=== PATIENT | female | born 1975 | race Caucasian/White ===

== ENCOUNTER 2020-04-22 11:37 | Emergency (ER) | payer OTHER ==
[2020-04-22 11:48] VITALS: TEMP 97.8
[2020-04-22] MEDS ORDERED: CEPHALEXIN 500MG STARTER PACK 4 CAP BTL PO STA (12:03)
[2020-04-22] MEDS ORDERED: SULFAMETH-TMP DS STARTER PACK 2 TAB BTL PO STA (12:03)
--- NOTE | 2020-04-22 12:05 | ED ---
Skin/Abscess/FB HPI - General Source: patient Mode of arrival: ambulatory Limitations: no limitations <Cherelle Stallings - Last Filed: 04/22/20 12:23> <Brunilda Milligan - Last Filed: 04/22/20 13:05> - General Chief complaint: Skin/Abscess/Foreign Body Stated complaint: Sore on face Time Seen by Provider: 04/22/20 11:50 - History of Present Illness Initial comments: 44-year-old female presenting today for chief complaint of left sided facial abscess. Patient states that she had a large dinner ingrown hair on the left side of her face. She states that today it popped expressing a ton of purulent drainage. Patient thought it might be an abscess. She states there is some surrounding redness that she was not sure if she needed antibiotics that she presented to the ER. Patient denies any fever, chills general malaise nausea vomiting headache chest pain shortness of breath. Patient denies any oral lesions, difficulty breathing or swallowing. pt appears wellnontoxic on arrival. (Cherelle Stallings) - Related Data Previous Rx's Medication Instructions Recorded Cephalexin [Keflex] 500 mg PO Q6HR 7 Days #28 cap 04/22/20 Sulfamethox-Tmp 800-160Mg [Bactrim 2 tab PO Q12HR 7 Days #28 tab 04/22/20 DS 800-160 mg] Allergies Allergy/AdvReac Type Severity Reaction Status Date / Time No Known Allergies Allergy Verified 04/22/20 11:46 Review of Systems ROS Other: All systems not noted in ROS Statement are negative. <Cherelle Stallings - Last Filed: 04/22/20 12:23> ROS Other: All systems not noted in ROS Statement are negative. <Brunilda Milligan - Last Filed: 04/22/20 13:05> ROS Statement: Those systems with pertinent positive or pertinent negative responses have been documented in the HPI. Past Medical History Past Medical History: Hypertension, Thyroid Disorder Additional Past Medical History / Comment(s): hole in heart History of Any Multi-Drug Resistant Organisms: None Reported Additional Past Surgical History / Comment(s): Spleenectomy Past Psychological History: No Psychological Hx Reported Smoking Status: Current every day smoker Past Alcohol Use History: None Reported Past Drug Use History: None Reported <Cherelle Stallings - Last Filed: 04/22/20 12:23> General Exam Limitations: no limitations <Cherelle Stallings - Last Filed: 04/22/20 12:23> - General Exam Comments Initial Comments: General: The patient is awake and alert, in no distress Eye: +3 mm pupils are equal, round and reactive to light, extra-ocular movements are intact. No nystagmus. There is normal conjunctiva bilaterally. No signs of icterus. Ears, nose, mouth and throat: There are moist mucous membranes and no oral lesions. Neck: The neck is supple, there is no tenderness or JVD. Cardiovascular: There is a regular rate and rhythm. No murmur, rub or gallop is appreciated. Respiratory: Lungs are clear to auscultation, respirations are non-labored, breath sounds are equal. No wheezes, stridor, rales, or rhonchi. Gastrointestinal: Soft, non-distended, non-tender abdomen without masses or organomegaly noted. There is no rebound or guarding present. Musculoskeletal: Normal ROM, no tenderness. Strength 5/5. Sensation intact. Radial pulses equal bilaterally 2+. Neurological: A&O x 3. CN II-XII intact grossly, There are no obvious motor or sensory deficits. Coordination appears grossly intact. Speech is normal. Skin: Skin is warm and dry and no rashes 2x1cm lesions raised with open center, cannot express purulent drainage no fluctuation appreciated with surrounding redness left lower jawline Psychiatric: Cooperative, appropriate mood & affect, normal judgment. (Cherelle Stallings) Course Vital Signs 04/22/20 04/22/20 11:42 12:18 Temperature 97.8 F Pulse Rate 67 87 Respiratory 18 20 Rate Blood Pressure 184/106 165/97 O2 Sat by Pulse 100 99 Oximetry Medical Decision Making <Cherelle Stallings - Last Filed: 04/22/20 12:23> <Brunilda Milligan - Last Filed: 04/22/20 13:05> - Medical Decision Making Pt abscess drained spontaneously. there is surrounding redness and warmth. denies systemic spread of infection. no fevers. pt will be discharged on dual antibiotics therapy regime. Dr >Srini agreeable to care plan. (Cherelle Stallings) I was available for consultation in the emergency department. The history and physical exam were done by the midlevel provider. I was consulted for this patients care. I reviewed the case with the midlevel provider and based on their presentation of the patient, I agree with the assessment, medical decision making and plan of care as documented. Chart was dictated using [employer]ation[employer] dictation software. Attempts were made to correct any dictation errors however some typographical errors may persist. (Brunilda Milligan) Disposition Is patient prescribed a controlled substance at d/c from ED?: No Time of Disposition: 12:05 <Cherelle Stallings - Last Filed: 04/22/20 12:23> <Brunilda Milligan - Last Filed: 04/22/20 13:05> Clinical Impression: Facial cellulitis, Elevated blood pressure reading Disposition: HOME SELF-CARE Condition: Good Instructions (If sedation given, give patient instructions): Abscess (ED) Additional Instructions: Please use medication as discussed. Please follow-up with family doctor in the next 2 days. Please return to emergency room if the symptoms increase or worsen or for any other concerns. Prescriptions: Sulfamethox-Tmp 800-160Mg [Bactrim DS 800-160 mg] 2 tab PO Q12HR 7 Days #28 tab Cephalexin [Keflex] 500 mg PO Q6HR 7 Days #28 cap Referrals: None,Stated [Primary Care Provider] - 1-2 days [facility] Elisa lewis [NON-STAFF] - 1-2 days Dari Oropeza MD [STAFF PHYSICIAN] - 1-2 days
[2020-04-22 12:19] VITALS: BP 165/97; PULSE 87; RESP 20
== END 2020-04-22 12:19 | disposition home or self-care (01) ==
LOC: EC 11:37
DX: L03.211 Cellulitis of face (principal); L02.01 Cutaneous abscess of face; R03.0 Elevated blood-pressure reading, without diagnosis of hypertension; F17.200 Nicotine dependence, unspecified, uncomplicated
CPT/HCPCS: 99283

== ENCOUNTER 2022-01-18 23:01 | Emergency (ER) | payer OTHER ==
[2022-01-18 23:10] VITALS: TEMP 98.2
[2022-01-19] MEDS ORDERED: IPRATROPIUM-ALBUTEROL 3 ML NEB INHALATION STA (00:28)
[2022-01-19] MEDS ORDERED: methylPREDNISolone SOD SUCCI 125 MG/2 ML VIAL IV STA (00:28)
--- NOTE | 2022-01-19 00:43 | XR ---
EXAMINATION TYPE: XR chest 2V DATE OF EXAM: 01/19/2022 COMPARISON: NONE HISTORY: Difficulty breathing TECHNIQUE: 2 views FINDINGS: Heart and mediastinum are normal. Lungs are clear of consolidation. There are no hilar mass es. The bony thorax is intact. IMPRESSION: No active cardiopulmonary disease. Normal heart.
[2022-01-19 01:03] VITALS: RESP 18
[2022-01-19 01:10] LABS: Basophils # (A) 0.1 k/uL (0-0.2); Basophils % (A) 1 %; Eosinophils # (A) 0.4 k/uL (0-0.7); Eosinophils % (A) 4 %; Lymphocytes # (A) 2.8 k/uL (1.0-4.8); Lymphocytes % (A) 31 %; MCH 30.3 pg (25.0-35.0); MCHC 33.2 g/dL (31.0-37.0); MCV 91.4 fL (80.0-100.0); Mean Platelet Volume 9.2; Monocytes # (A) 0.9 k/uL (0-1.0); Monocytes % (A) 10 %; Neutrophils # (A) 4.5 k/uL (1.3-7.7); Neutrophils % (A) 51 %; Platelet Count 427 k/uL (150-450); RBC 4.27 m/uL (3.80-5.40); RDW 13.6 % (11.5-15.5); WBC 8.8 k/uL (3.8-10.6)
--- NOTE | 2022-01-19 01:27 | US ---
EXAMINATION TYPE: US venous doppler duplex LE DATE OF EXAM: 01/19/2022 12:29 AM COMPARISON: NONE CLINICAL HISTORY: edema. Edema in bilateral feet. Not on blood thinners. No hx DVT. SIDE PERFORMED: Bilateral TECHNIQUE: The lower extremity deep venous system is examined utilizing real time linear array sonog chris with graded compression, doppler sonography and color-flow sonography. VESSELS IMAGED: Common Femoral Vein Deep Femoral Vein Greater Saphenous Vein * Femoral Vein Popliteal Vein Small Saphenous Vein * Proximal Calf Veins- limited visualization (* superficial vessels) Suboptimal visualization due to patient body habitus and edema Right Leg: Negative for DVT Left Leg: Negative for DVT IMPRESSION: No evidence of deep vein thrombosis in both legs.
[2022-01-19 01:37] LABS: INR 0.9 (<1.2); Prothrombin Time 10.4 sec (9.0-12.0)
[2022-01-19 02:11] LABS: ALT 12 U/L (4-34); AST 16 U/L (14-36); African American GFR (CKD) >90 (>60 ml/min/1.73 sqM); Albumin 3.8 g/dL (3.5-5.0); Alkaline Phosphatase 119 U/L (38-126); Anion Gap 10 mmol/L; Blood Urea Nitrogen 13 mg/dL (7-17); Calcium 8.8 mg/dL (8.4-10.2); Carbon Dioxide 24 mmol/L (22-30); Chloride 105 mmol/L (98-107); Glucose 108 mg/dL (74-99); Magnesium 1.7 mg/dL (1.6-2.3); Non-African American GFR(CKD) >90 (>60 ml/min/1.73 sqM); Potassium 4.2 mmol/L (3.5-5.1); Sodium 139 mmol/L (137-145); Total Bilirubin 0.6 mg/dL (0.2-1.3); Total Protein 7.3 g/dL (6.3-8.2)
--- NOTE | 2022-01-19 02:35 | ED ---
General Adult HPI - General Chief complaint: Shortness of Breath Stated complaint: Bilateral feet swelling and pain, Time Seen by Provider: 01/19/22 00:20 Source: patient, RN notes reviewed, old records reviewed Mode of arrival: ambulatory Limitations: no limitations - History of Present Illness Initial comments: Patient is a 46-year-old female who presents emergency Department complaining of bilateral lower extremity edema. Has been ongoing for approximately 6 weeks. States is worse. States it is somewhat painful. Denies any chest pain associat ed with it but does state she has shortness of breath which is somewhat chronic and she does have COPD and uses a CPAP at night. Denies any history of blood clots. Denies any history of congestive heart failure or cardiac disease. Does endorse mild orthopnea. Denies PND. Endorses some exertional dyspnea. All this is somewhat baseline for her, numbness I worsening. Denies any history of blood clots. Denies any abdominal pain, nausea, vomiting. Denies chest pain. Denies fevers, chills, cough. Denies any sensory deficits or weakness of the legs. Presents for further evaluation over concern for the swelling in her legs. - Related Data Previous Rx's Medication Instructions Recorded Cephalexin [Keflex] 500 mg PO Q6HR 7 Days #28 cap 04/22/20 Sulfamethox-Tmp 800-160Mg [Bactrim 2 tab PO Q12HR 7 Days #28 tab 04/22/20 DS 800-160 mg] Albuterol Inhaler [Ventolin Hfa 1 puff INHALATION Q6H PRN #1 unit 01/19/22 Inhaler] predniSONE [Deltasone] 40 mg PO DAILY 5 Days #10 tab 01/19/22 Allergies Allergy/AdvReac Type Severity Reaction Status Date / Time No Known Allergies Allergy Verified 04/22/20 11:46 Review of Systems ROS Statement: Those systems with pertinent positive or pertinent negative responses have been documented in the HPI. Review of Systems: CONST: Denies fever EYES: Denies blurry vision ENT: Denies nasal congestion C/V: Denies Chest pain RESP: Denies shortness of breath GI: Denies abdominal pain : Denies dysuria SKIN: Denies rash. MSK: Endorses leg swelling NEURO: Denies headache ROS Other: All systems not noted in ROS Statement are negative. Past Medical History Past Medical History: COPD, Hypertension, Thyroid Disorder Additional Past Medical History / Comment(s): hole in heart History of Any Multi-Drug Resistant Organisms: None Reported Additional Past Surgical History / Comment(s): Spleenectomy RUPTURE BLADDER REPAIR Past Psychological History: No Psychological Hx Reported Smoking Status: Current every day smoker Past Alcohol Use History: None Reported Past Drug Use History: None Reported General Exam - General Exam Comments Initial Comments: General: Appears in no acute distress. HEAD: Normal with no signs of head trauma. EYES: PERRLA, EOMI, conjunctiva normal, no discharge. ENT: Hearing grossly intact, normal oropharynx. RESPIRATORY: Bilateral end expiratory wheezing. No hypoxia. No respiratory distress. C/V: Regular rate and rhythm. S1 and S2 auscultated, 2+ pitting edema bilateral lower extremities up to the level of the knee. Symmetric., peripheral pulses 2+ and intact throughout ABD: Abd is soft, nontender, nondistended EXT: Normal range of motion, no obvious deformity SKIN: No rashes or lesions observed on exposed skin. NEURO: Alert and oriented 4. Limitations: no limitations Course Vital Signs 01/18/22 01/19/22 01/19/22 23:04 01:02 01:28 Temperature 98.2 F Pulse Rate 80 79 75 Respiratory 20 18 Rate Blood Pressure 165/108 157/94 O2 Sat by Pulse 100 100 Oximetry 01/19/22 01/19/22 01/19/22 01:39 03:02 03:04 Temperature Pulse Rate 74 75 Respiratory 18 18 Rate Blood Pressure 136/84 O2 Sat by Pulse 98 Oximetry Medical Decision Making - Medical Decision Making Based on The patient's presentation and physical exam, she seemed appears to be having lower extremity edema that is somewhat chronic. However she is complaining of some vague shortness of breath symptoms as well. I significant history of COPD. She is wheezing, however due to the swelling as well as the shortness of breath I am concerned for possible cardio pulmonary cause for current symptoms. We will obtain a screening d-dimer as well as bilateral venous duplex is, chest x-ray, EKG, cardio pulmonary labs. She was in agreement this plan. No infectious symptoms at this time. She'll be given a breathing treatment as well as IV steroids. EKG showed no signs of acute ischemia. Chest x-ray shows no acute cardio primary process. Bilateral venous duplex study showed no DVT. Laboratory studies were remarkable for an undetectable troponin, BNP within normal limits. D-dimer is elevated to 1.45. I did the patient the findings of her workup. Would like to obtain a CT PE to rule out pulmonary embolus and. She was in agreement this plan. Vital signs remained within acceptable limits at this time. CT PE was delayed but returned showing no signs of pulmonary embolism. Relatively unremarkable study overall. On reevaluation at did discuss the patient's workup with her. She expressed understanding. We discussed She likely has dependent edema. I will provide her with a single dose of Lasix in the department but recommended she follow up with her PCP for further Lasix prescription. She was in agreement this plan. She also receive steroids as well as an inhaler for her COPD exacerbation. Wheezing has resolved at this time. Vital signs remained within acceptable limits. She'll be discharged home. Patient was in agreement this plan. I will provide the patient with a prescription for prednisone, albuterol. I instructed the patient to follow up with their PCP in the next 1-3 days. I explained that the patient should return to the emergency department if they experience any worsening symptoms. Strict return precautions were discussed with the patient. The patient expressed understanding of these instructions. I answered all questions that the patient had. The patient was discharged home in good condition with their prescriptions and follow up information. - Lab Data Result diagrams: 01/19/22 01:02 01/19/22 01:02 Lab Results 01/19/22 01/19/22 01/19/22 Range/Units 01:02 01:02 01:02 WBC 8.8 (3.8-10.6) k/uL RBC 4.27 (3.80-5.40) m/uL Hgb 13.0 (11.4-16.0) gm/dL Hct 39.0 (34.0-46.0) % MCV 91.4 (80.0-100.0) fL MCH 30.3 (25.0-35.0) pg MCHC 33.2 (31.0-37.0) g/dL RDW 13.6 (11.5-15.5) % Plt Count 427 (150-450) k/uL MPV 9.2 Neutrophils % 51 % Lymphocytes % 31 % Monocytes % 10 % Eosinophils % 4 % Basophils % 1 % Neutrophils # 4.5 (1.3-7.7) k/uL Lymphocytes # 2.8 (1.0-4.8) k/uL Monocytes # 0.9 (0-1.0) k/uL Eosinophils # 0.4 (0-0.7) k/uL Basophils # 0.1 (0-0.2) k/uL PT 10.4 (9.0-12.0) sec INR 0.9 (<1.2) APTT 25.0 (22.0-30.0) sec D-Dimer 1.45 H (<0.60) mg/L FEU Sodium 139 (137-145) mmol/L Potassium 4.2 (3.5-5.1) mmol/L Chloride 105 (98-107) mmol/L Carbon Dioxide 24 (22-30) mmol/L Anion Gap 10 mmol/L BUN 13 (7-17) mg/dL Creatinine 0.78 (0.52-1.04) mg/dL Est GFR (CKD-EPI)AfAm >90 (>60 ml/min/1.73 sqM) Est GFR (CKD-EPI)NonAf >90 (>60 ml/min/1.73 sqM) Glucose 108 H (74-99) mg/dL Plasma Lactic Acid Shemar (0.7-2.0) mmol/L Calcium 8.8 (8.4-10.2) mg/dL Magnesium 1.7 (1.6-2.3) mg/dL Total Bilirubin 0.6 (0.2-1.3) mg/dL AST 16 (14-36) U/L ALT 12 (4-34) U/L Alkaline Phosphatase 119 (38-126) U/L Troponin I (0.000-0.034) ng/mL NT-Pro-B Natriuret Pep pg/mL Total Protein 7.3 (6.3-8.2) g/dL Albumin 3.8 (3.5-5.0) g/dL 01/19/22 01/19/22 01/19/22 Range/Units 01:02 01:02 01:02 WBC (3.8-10.6) k/uL RBC (3.80-5.40) m/uL Hgb (11.4-16.0) gm/dL Hct (34.0-46.0) % MCV (80.0-100.0) fL MCH (25.0-35.0) pg MCHC (31.0-37.0) g/dL RDW (11.5-15.5) % Plt Count (150-450) k/uL MPV Neutrophils % % Lymphocytes % % Monocytes % % Eosinophils % % Basophils % % Neutrophils # (1.3-7.7) k/uL Lymphocytes # (1.0-4.8) k/uL Monocytes # (0-1.0) k/uL Eosinophils # (0-0.7) k/uL Basophils # (0-0.2) k/uL PT (9.0-12.0) sec INR (<1.2) APTT (22.0-30.0) sec D-Dimer (<0.60) mg/L FEU Sodium (137-145) mmol/L Potassium (3.5-5.1) mmol/L Chloride (98-107) mmol/L Carbon Dioxide (22-30) mmol/L Anion Gap mmol/L BUN (7-17) mg/dL Creatinine (0.52-1.04) mg/dL Est GFR (CKD-EPI)AfAm (>60 ml/min/1.73 sqM) Est GFR (CKD-EPI)NonAf (>60 ml/min/1.73 sqM) Glucose (74-99) mg/dL Plasma Lactic Acid Shemar 1.0 (0.7-2.0) mmol/L Calcium (8.4-10.2) mg/dL Magnesium (1.6-2.3) mg/dL Total Bilirubin (0.2-1.3) mg/dL AST (14-36) U/L ALT (4-34) U/L Alkaline Phosphatase (38-126) U/L Troponin I <0.012 (0.000-0.034) ng/mL NT-Pro-B Natriuret Pep 46 pg/mL Total Protein (6.3-8.2) g/dL Albumin (3.5-5.0) g/dL - EKG Data -: EKG Interpreted by Me EKG Comments: 12-lead Electrocardiogram Interpretation Note EKG was reviewed and interpreted by myself. 12-lead ECG performed at 0044 is interpreted by me as revealing normal sinus rhythm at a rate of 78 beats per minute. [place] is normal. HI interval is 143 ms, QRS duration is 80 ms, QTc is 407 ms.. There were no ST or T wave abnormalities to suggest myocardial ischemia or injury. R wave progression across the precordium was satisfactory. By my interpretation this EKG is non-diagnostic for acute ischemia. Disposition Clinical Impression: Dependent edema, COPD exacerbation Disposition: HOME SELF-CARE Condition: Good Instructions (If sedation given, give patient instructions): Lymphedema (ED) Prescriptions: predniSONE [Deltasone] 40 mg PO DAILY 5 Days #10 tab Albuterol Inhaler [Ventolin Hfa Inhaler] 1 puff INHALATION Q6H PRN #1 unit PRN Reason: Dyspnea Is patient prescribed a controlled substance at d/c from ED?: No Referrals: None,Stated [Primary Care Provider] - 1-2 days Time of Disposition: 03:05
--- NOTE | 2022-01-19 02:49 | CT ---
EXAMINATION TYPE: CT chest angio for PE DATE OF EXAM: 01/19/2022 COMPARISON: HISTORY: R/O PE CT DLP: 816.1 mGycm Automated exposure control for dose reduction was used. CONTRAST: Performed with IV Contrast, patient injected with 80 mL of Isovue 370. Images obtained from the thoracic inlet to the diaphragm with the IV contrast. There are 3-D postprocess images. The lungs are clear of consolidation. No pleural effusion. There is minimal interstitial density in t he lung bases bilaterally. The heart is top normal in size. No pericardial effusion. There are bilate ral bronchial lymph nodes measuring up to 1.5 cm. No mediastinal adenopathy. There are no hilar masses. There is normal contrast opacification of the p ulmonary arteries. No filling defect. The thoracic spine is intact. No compression fracture. Sternum is intact. IMPRESSION: No evidence of pulmonary embolism. There are a few bilateral bronchial lymph nodes. No suspicious pul monary mass. Minimal pulmonary interstitial basilar density.
[2022-01-19] MEDS ORDERED: FUROSEMIDE 10 MG/ML 2 ML VIAL IV STA (03:24)
[2022-01-19 03:46] VITALS: BP 132/72; PULSE 84
== END 2022-01-19 03:47 | disposition home or self-care (01) ==
LOC: EC 23:01
DX: J44.1 Chronic obstructive pulmonary disease with (acute) exacerbation (principal); R60.9 Edema, unspecified; I10 Essential (primary) hypertension; F17.200 Nicotine dependence, unspecified, uncomplicated; Z79.51 Long term (current) use of inhaled steroids; Z99.89 Dependence on other enabling machines and devices; Z79.899 Other long term (current) drug therapy
CPT/HCPCS: 36415; 71046; 71275; 80053; 83605; 83735; 83880; 84484; 85025; 85379; 85610; 85730; 93005; 93970; 94640; 96374; 96375; 99285

== ENCOUNTER → 2022-09-26 | Outpatient (CLI) | payer OTHER ==
--- NOTE | 2022-09-26 16:15 | US ---
EXAMINATION TYPE: US thyroid st tissue head/neck DATE OF EXAM: 09/26/2022 COMPARISON: NONE CLINICAL INDICATION: Female, 46 years old with history of E03.9 HYPOTHYROIDISM, UNSPECIFIED; hypothyr oidism . Patient on medication GLAND SIZE: Right Lobe: 3.5 x 1.4 x 1.8 cm Overall Parenchyma: homogenous Left Lobe: 3.6 x 1.1 x 1.3 cm Overall Parenchyma: homogeneous Isthmus Thickness: 0.4 cm NODULES RIGHT: # of nodules measured on right: ?subtle isoechoic/hypoechoic area posterior mid = 1.0 x 0.9 x 0.8m TIRADS Score: 3 TIRADS Category 3: Mildly Suspicious Composition: Solid or almost completely solid (2 points). Echogenicity: Hyperechoic or isoechoic (1 point). Shape: Wider than tall (0 points). Margin: Smooth (0 points). Echogenic foci: None or large comet-tail artifacts (0 points) Recommendation: If >2.5cm: FNA; If >1.5cm: Follow up at 1,3,5 years LEFT: # of nodules measured on left: 1 1. 0.6 X 0.4 x 0.5 cm, lower , Prior size: no prior TIRADS Score: 4 TIRADS Category 4: Moderately Suspicious Composition: Solid or almost completely solid (2 points). Echogenicity: Hypoechoic (2 points). Shape: Wider than tall (0 points). Margin: Smooth (0 points). Echogenic foci: None or large comet-tail artifacts (0 points) Recommendation: If >1.5cm: FNA; If >1cm: Follow up at 1,2, 3,5 years ISTHMUS: # of nodules measured in the isthmus: 0 Bilateral neck scanned, no evidence of lymphadenopathy. IMPRESSION: Thyroid nodules that meet criteria for follow-up.
== END | disposition home or self-care (01) ==
LOC: RADUSWWP 15:17
PROVIDERS: ATTEND Family Medicine
DX: E03.9 Hypothyroidism, unspecified (principal); E04.2 Nontoxic multinodular goiter
CPT/HCPCS: 76536